=== PATIENT | male | born 1980 | race Two or more races ===

== ENCOUNTER → 2019-04-06 | Day surgery (SDC) | payer MEDICAID ==
[2019-03-31 12:47] LABS: Basophils # (auto) 0.1 uL; Basophils % (auto) 0.7 % (0.0-2.0); Eosinophils # (auto) 0.2 uL; Eosinophils % (auto) 2.2 % (0.0-7.0); Hematocrit 43.6 % (41.0-53.0); Hemoglobin 14.8 g/dL (13.5-17.5); Lymphocytes # (auto) 1.8 uL; Lymphocytes % (auto) 21.9 % (10.0-50.0); Mean Corpuscular Hgb Conc. 33.9 g/dL (32.0-36.0); Mean Corpuscular Volume 85.7 fL (80.0-100.0); Monocytes # (auto) 0.7 uL; Monocytes % (auto) 8.5 % (0.0-12.0); Neutrophils # (auto) 5.5 uL; Neutrophils % (auto) 66.7 % (37.0-80.0); Platelet Count (auto) 284 10^3/uL (140-450); Red Blood Cells 5.09 10^6/uL (4.5-5.90); Red Cell Distribution Width 13.7 % (11.8-14.3); White Blood Cell 8.2 10^3/uL (4.4-10.8)
[2019-03-31 13:04] LABS: INR < 0.93 (0.9-1.15); Partial Thromboplastin Time 27.4 sec (23.64-32.05)
[2019-03-31 13:20] LABS: Urine Bacteria NONE SEEN /hpf (None Seen); Urine Blood Negative /uL (Negative); Urine Hyaline Cast FEW /lpf (0 - 2); Urine Mucus FEW (None Seen); Urine Specific Gravity 1.031 (1.001-1.035); Urine WBC 1 /hpf (0 - 3)
[2019-03-31 13:21] LABS: Urine Sperm Rare /hpf (None Seen)
[2019-03-31 13:30] LABS: Albumin 3.9 g/dL (3.4-5.0); BUN/Creatinine Ratio 24.2; Calcium 9.3 mg/dL (8.5-10.1); Potassium 5.1 mmol/L (3.5-5.1)
[2019-03-31 13:33] LABS: Bilirubin, Total 0.4 mg/dL (0.2-1.0); Total Protein 8.4 g/dL (6.4-8.2)
[~2019-04-06] VITALS: Ht 180.3 cm; Wt 103.4 kg
[~2019-04-06] MED LIST: GABA300C10 PO; INSLANTI SC; METF-372 PO; METOCLOPRAMIDE HCL 5MG/ml INJ 2ml VIAL IV PRN; MIDAZOLAM HCL 1MG/1ML-2 ML VIAL ONE; OMEP20TA PO; ONDANSETRON HCL 4 MG/2 ML VIAL ONE; PROPOFOL 10 MG/ML 20 ML IV ONE; SODIUM CHLORIDE LOCK 0 ML ONE; ceFAZolin 1GM/50ML 50 ML IV ONE; fentaNYL CITRATE 100 MCG/2 ML VL IV PRN; fentaNYL CITRATE 100 MCG/2 ML VL ONE
[2019-04-06] MEDS: InsuLIN REG 1unit/0.01ml Soln (100units/ml) ONE ×2 (12:20→12:21)
[2019-04-06] MEDS: HYDROmorphone HCL 2 MG/ML VL IV PRN ×2 (15:03→15:13)
[2019-04-06 15:05] VITALS: BP 119/86
== END | disposition home or self-care (01) ==
LOC: SUR 10:29
PROVIDERS: ATTEND Podiatrist Foot & Ankle Surgery
DX: E11.621 Type 2 diabetes mellitus with foot ulcer (principal); L97.528 Non-pressure chronic ulcer of other part of left foot with other specified severity; I10 Essential (primary) hypertension; M19.90 Unspecified osteoarthritis, unspecified site; Z88.1 Allergy status to other antibiotic agents; Z88.8 Allergy status to other drugs, medicaments and biological substances; Z79.899 Other long term (current) drug therapy; Z98.84 Bariatric surgery status; Z98.890 Other specified postprocedural states
CPT/HCPCS: 15004; 15275; 36415; 80053; 81001; 82962; 85025; 85610; 85730; 87070; 87075; 87077; 87186; 87205; C1887; J0690; J1170; J1815; J2250; J2704; J3010; L3260; Q4126; J2405

== ENCOUNTER → 2019-07-06 | Day surgery (SDC) | payer MEDICAID ==
[2019-07-05 11:55] LABS: Basophils # (auto) 0 uL; Basophils % (auto) 0.4 % (0.0-2.0); Eosinophils # (auto) 0.2 uL; Eosinophils % (auto) 2.5 % (0.0-7.0); Hemoglobin 15.4 g/dL (13.5-17.5); Lymphocytes % (auto) 23.8 % (10.0-50.0); Mean Corpuscular Hemoglobin 29.2 pg (28.0-32.0); Mean Corpuscular Hgb Conc. 33.5 g/dL (32.0-36.0); Mean Corpuscular Volume 87.1 fL (80.0-100.0); Monocytes # (auto) 0.6 uL; Monocytes % (auto) 7.3 % (0.0-12.0); Neutrophils # (auto) 5.5 uL; Platelet Count (auto) 281 10^3/uL (140-450); Red Blood Cells 5.29 10^6/uL (4.5-5.90); Red Cell Distribution Width 13.5 % (11.8-14.3); White Blood Cell 8.3 10^3/uL (4.4-10.8)
[2019-07-05 11:58] LABS: Urine Bacteria FEW /hpf (None Seen); Urine Blood TRACE /uL (Negative); Urine Mucus FEW (None Seen); Urine Specific Gravity 1.023 (1.001-1.035); Urine Sperm PRESENT /hpf (None Seen); Urine WBC 1 /hpf (0 - 3)
[2019-07-05 12:13] LABS: INR 0.97 (0.9-1.15); Partial Thromboplastin Time 28.1 sec (23.64-32.05)
[2019-07-05 12:19] LABS: Calcium 9.4 mg/dL (8.5-10.1); Potassium 4.8 mmol/L (3.5-5.1)
[2019-07-05 12:24] LABS: BUN/Creatinine Ratio 28.2; Bilirubin, Total 0.4 mg/dL (0.2-1.0); Total Protein 8.6 g/dL (6.4-8.2)
[~2019-07-06] VITALS: Ht 180.3 cm; Wt 104.3 kg
[~2019-07-06] MED LIST changes: +LISI2.5T47 PO; -METOCLOPRAMIDE HCL 5MG/ml INJ 2ml VIAL IV PRN; +ONDANSETRON HCL 4 MG/2 ML VIAL IV PRN; -ONDANSETRON HCL 4 MG/2 ML VIAL ONE; +ROPIVACAINE 0.5% (5MG/ML) 20ML AMPULE IJ ONE; -SODIUM CHLORIDE LOCK 0 ML ONE; +ePHEDrine SULFATE 50 MG/ML AMP IV PRN; +fentaNYL CITRATE 100 MCG/2 ML VL IV ONE; +hydrALAZINE HCL 20 MG/ML VL IV PRN
[2019-07-06 14:35] VITALS: BP 116/81
== END | disposition home or self-care (01) ==
LOC: SUR 10:37
PROVIDERS: ATTEND Podiatrist Foot & Ankle Surgery
DX: M62.462 Contracture of muscle, left lower leg (principal); Q66.89 Other specified congenital deformities of feet; E11.621 Type 2 diabetes mellitus with foot ulcer; L89.893 Pressure ulcer of other site, stage 3; I10 Essential (primary) hypertension; E78.00 Pure hypercholesterolemia, unspecified; Z88.2 Allergy status to sulfonamides; Z88.1 Allergy status to other antibiotic agents; Z79.4 Long term (current) use of insulin; Z90.49 Acquired absence of other specified parts of digestive tract; Z98.890 Other specified postprocedural states; Z79.84 Long term (current) use of oral hypoglycemic drugs; Z79.899 Other long term (current) drug therapy
CPT/HCPCS: 27685; 29999; 36415; 80053; 81001; 82962; 85025; 85610; 85730; J0690; J2250; J2704; J2795; J3010